=== PATIENT | female | born 1985 | race Caucasian/White ===

== ENCOUNTER 2018-02-23 12:33 | Day surgery (SDC) | payer BC, SELFPAY ==
[2018-02-17 14:38] VITALS: BMI 20.2
[2018-02-23 12:48] VITALS: BP 105/72; PULSE 71; RESP 12; TEMP 36.1; O2SAT 98; BMI 20.2
[2018-02-23] MEDS: LACTATED RINGERS 1,000 ML 100 ML IV (12:57)
--- NOTE | 2018-02-23 13:14 | PM.PREOP ---
Pre-operative Note Interval Note Pre-op Check: Yes History & Physical Reviewed by Physician and Yes Exam Performed Changes: No
[2018-02-23 13:48] VITALS: BP 90/55; PULSE 60; RESP 12; TEMP 36.4; O2SAT 99
[2018-02-23 13:51] VITALS: BP 90/57; PULSE 62; RESP 12; O2SAT 98
[2018-02-23 13:57] VITALS: BP 104/67; PULSE 76; RESP 15; O2SAT 99
--- NOTE | 2018-02-23 14:01 | PM.OP.1 ---
Operative Date/Time/Diagnoses Date of procedure: 02/23/18 Time of procedure: 14:01 Pre-op diagnosis: Retained fragment IUD Post-op diagnosis: same Procedure & Clinicians Procedure: D&C Same procedure as scheduled: No (No hysteroscopy was necessary) Indications: Patient with a retained fragment of ParaGard IUD after removal Surgeon: Darby Lucas Click Yes if Unassisted: Yes Anesthesia Type: General Operative Notes Findings: Normal exam under anesthesia, arm ParaGard IUD retrieved Closure Type: not applicable Specimen(s): none sent Estimated Blood Loss (mL): 0 Blood products transfused: none Procedure in detail: Patient was brought to the operating room where she underwent general anesthesia was prepped and draped the usual sterile fashion placed and low Yellofin stirrups. Antibiotics were not indicated. Warming was in place with blankets. Patient urinated prior to coming into the operating room. A check system was reviewed with the staff in the room prior to beginning the case. A single-tooth tenacula was placed on the anterior lip the cervix. The cervix was dilated to a #10 Hegar dilator. A polyp forceps was placed in through the cervix and the retained fragment was grasped and removed without difficulty. The patient went to recovery room in good condition. Counts of instruments and sponges were correct. Complications: none Condition: stable Disposition: same day surgery Plan for aftercare: Follow-up if any concerns
[2018-02-23 14:10] VITALS: BP 103/63; PULSE 52; RESP 16; TEMP 36.8; O2SAT 94
== END 2018-02-23 14:10 | disposition home or self-care (01) ==
PROVIDERS: PCP Nurse Practitioner Family; Visit Provider Specialist
PROC: 0UDB8ZZ Extraction of Endometrium, Via Natural or Artificial Opening Endoscopic (ICD-10-PCS; CPT 58558; 2018-02-23 13:30)
DX: T83.89XA Other specified complication of genitourinary prosthetic devices, implants and grafts, initial encounter (principal)
CPT/HCPCS: 58301; J1100; J1885; J2250; J2405; J2704; J3010

== ENCOUNTER → 2020-09-29 16:03 | Outpatient (CLI) | payer BC, SELFPAY ==
[2020-09-29] MEDS: COVID-19 VACC #1, MRNA(MOD) 100 MCG/0.5 ML VIAL IM (16:08)
== END ==
PROVIDERS: PCP Nurse Practitioner Family; Visit Provider Internal Medicine
DX: Z23 Encounter for immunization (principal)
CPT/HCPCS: 0011A; 91301

== ENCOUNTER → 2020-10-27 15:50 | Outpatient (CLI) | payer OTHER, SELFPAY ==
[2020-10-27] MEDS: COVID-19 VACC #2, MRNA(MOD) 100 MCG/0.5 ML VIAL IM (15:59)
== END ==
PROVIDERS: PCP Nurse Practitioner Family; Visit Provider Internal Medicine
DX: Z23 Encounter for immunization (principal)
CPT/HCPCS: 0012A; 91301

== ENCOUNTER → 2022-08-04 12:18 | Outpatient (CLI) | payer OTHER, SELFPAY | PROVIDERS: PCP Nurse Practitioner Family; Visit Provider Student in an Organized Health Care Education/Training Program | DX: J02.9 Acute pharyngitis, unspecified (principal); U07.1 COVID-19 | CPT/HCPCS: 87070 ==